=== PATIENT | male | born 1965 | race Caucasian/White ===

== ENCOUNTER 2022-02-16 12:54 | Outpatient (CLI) | payer OTHER, SELFPAY ==
--- NOTE | ~2022-02-16 | XR_ITS ---
EXAMINATION: XR elbow LT min 3V DATE: 02/16/2022 13:17 INDICATION: Olecranon bursitis at the left elbow TECHNIQUE: Anteroposterior, two oblique and lateral views of the left elbow were obtained. COMPARISON: None. FINDINGS: Alignment is normal. No fracture or joint effusion. Joint spaces are normal. Moderate sized olecranon spur and small enthesopathic ossicle at the distal triceps tendon. There is prominent overlying soft tissue swelling consistent with provided history of olecranon bursitis. No erosions or periosteal re action. IMPRESSION: 1. Olecranon enthesophyte and small enthesopathic ossicle with prominent overlying soft tissue swelli ng consistent with provided history of olecranon bursitis. Reviewed, dictated and finalized at location A. IMPRESSION: 1. Olecranon enthesophyte and small enthesopathic ossicle with prominent overly ing soft tissue swelling consistent with provided history of olecranon bursitis .
== END 2022-02-16 12:55 | disposition home or self-care (01) ==
DX: M70.22 Olecranon bursitis, left elbow (principal); M79.89 Other specified soft tissue disorders
CPT/HCPCS: 73080